=== PATIENT | male | born 1955 | race Caucasian/White ===

== ENCOUNTER → 2020-11-09 12:06 | Outpatient (CLI) | payer MEDICARE, BC, SELFPAY ==
--- NOTE | 2020-11-10 | DI.RAD_ITS ---
Exam(s) XR LUMBAR SPINE AP, LAT EXAM: XR LUMBAR SPINE AP, LAT CLINICAL HISTORY: CHRONIC MID BACK AND LOW BACK PAIN, ? SCOLIOSIS. TECHNIQUE: 2D digital imaging was performed. COMPARISON: No exams were available for comparison FINDINGS: There is a prominent dextroscoliosis centered at L1-2. There is asymmetric disc space narrowing on t he left side at L1-2 and L2-3 and asymmetric disc space narrowing on the right side at L3-4 through L 5-S1. And there are prominent endplate osteophytes. The vertebral bodies are not optimally profiled on the lateral view due to the scoliosis. Facet joint degenerative changes are noted greatest at L4 -5 and L5-S1. No gross compression fracture is seen. There are bilateral hip prostheses. There are [id number] degenerative changes of both SI joints. IMPRESSION: Severe degenerative disc changes and scoliosis. DATA REPOSITORY: RADIATION DOSE DELIVERED:
--- NOTE | 2020-11-10 | DI.RAD_ITS ---
Exam(s) XR THORACIC SPINE COMPLETE EXAM: XR THORACIC SPINE COMPLETE CLINICAL HISTORY: CHRONIC MID BACK AND LOW BACK PAIN, ? SCOLISOS. TECHNIQUE: 2D digital imaging was performed. COMPARISON: No exams were available for comparison FINDINGS: There is no evidence of compression fracture. There are mild degenerative disc changes with anterior osteophytes. There is a mild levoscoliosis in the lower thoracic region. Heart size is normal. Th e visualized portions of the lungs appear clear. IMPRESSION: Mild degenerative changes. Mild scoliosis. DATA REPOSITORY: RADIATION DOSE DELIVERED:
== END ==
PROVIDERS: Visit Provider Chiropractor Orthopedic
DX: M54.5 Low back pain (principal); M54.6 Pain in thoracic spine; M51.34 Other intervertebral disc degeneration, thoracic region; M51.37 Other intervertebral disc degeneration, lumbosacral region; M53.3 Sacrococcygeal disorders, not elsewhere classified; Z96.643 Presence of artificial hip joint, bilateral; M47.817 Spondylosis without myelopathy or radiculopathy, lumbosacral region
CPT/HCPCS: 72072; 72100

== ENCOUNTER 2021-12-23 15:55 | Outpatient (REF) | payer MEDICARE, BC, SELFPAY ==
[2021-12-25 10:25] LABS: COVID-19 RT-PCR UVMMC Result Positive (Negative)
== END 2021-12-23 15:56 | disposition home or self-care (01) ==
LOC: NCHCN 15:55
PROVIDERS: Visit Provider Nurse Practitioner Family
DX: U07.1 COVID-19 (principal)
CPT/HCPCS: U0003

== ENCOUNTER 2022-09-12 18:16 | Outpatient (REF) | payer SELFPAY ==
[2022-09-12 18:31] LABS: Absolute Basophil Count 0.04 10^3/uL (0.0-0.2); Absolute Eosinophil Count 0.29 10^3/uL (0.0-0.7); Absolute Lymphocyte Count 1.49 10^3/uL (1.2-3.4); Absolute Monocyte Count 0.51 10^3/uL (0.1-0.8); Absolute Neutrophil Count 2.45 10^3/uL (1.2-6.7); Basophils % 0.8; Eosinophils % 5.9; HCT 28.7 % (40.0-50.0); Lymphocytes % 30.5; MCH 30.1 pg (27.0-33.0); MCHC 31.4 % (32.0-36.0); MCV 96 fL (80-95); MPV 9.5 fL (8.0-11.0); Monocytes % 10.5; Neutrophils % 50.3; Platelet Count 259 10^3/uL (130-400); RBC 2.99 10^6/uL (4.36-5.78); RDW 17.6 % (11.8-14.1); RDW-SD 61.5 fL; WBC 4.88 10^3/uL (4.4-10.8)
[2022-09-12 18:48] LABS: ALT 49 U/L (16-63); AST 47 U/L (15-37); Albumin 2.4 g/dL (3.4-5.0); Alkaline Phosphatase 151 U/L (46-116); Anion Gap 7.7 mmol/L (3-11); BUN 16 mg/dL (7-18); Bilirubin, Total 0.3 mg/dL (0.2-1.0); CO2 25.3 mmol/L (21.0-32.0); CREATININE 0.9 mg/dL (0.70-1.30); Chloride 110 mmol/L (98-107); Estimated GFR 93.03 (mL/min/1.73m2); Glucose 99 mg/dL (74-106); Potassium 4.2 mmol/L (3.5-5.1); Sodium 143 mmol/L (136-145); Total Protein 5.8 g/dL (6.4-8.2)
== END 2022-09-12 18:17 | disposition home or self-care (01) ==
LOC: LBN 18:16
PROVIDERS: Visit Provider Nurse Practitioner Gerontology
DX: D50.0 Iron deficiency anemia secondary to blood loss (chronic) (principal); E83.51 Hypocalcemia; R68.89 Other general symptoms and signs
CPT/HCPCS: 80053; 85025

== ENCOUNTER 2022-10-03 20:46 | Outpatient (REF) | payer MEDICARE, BC, SELFPAY ==
[2022-10-03 19:42] LABS: Abs Immature Grans 0.02 10^3/uL (0.0-0.06); Absolute Basophil Count 0.08 10^3/uL (0.0-0.2); Absolute Eosinophil Count 0.31 10^3/uL (0.0-0.7); Absolute Lymphocyte Count 2.15 10^3/uL (1.2-3.4); Absolute Monocyte Count 0.49 10^3/uL (0.1-0.8); Absolute Neutrophil Count 2.98 10^3/uL (1.2-6.7); Basophils % 1.3; Eosinophils % 5.1; HCT 35.5 % (40.0-50.0); HGB 11.2 g/dL (13.5-17.5); Immature Grans % 0.3; Lymphocytes % 35.7; MCH 31.7 pg (27.0-33.0); MCHC 31.5 % (32.0-36.0); MCV 101 fL (80-95); MPV 10.1 fL (8.0-11.0); Monocytes % 8.1; Neutrophils % 49.5; Platelet Count 225 10^3/uL (130-400); RBC 3.53 10^6/uL (4.36-5.78); WBC 6.03 10^3/uL (4.4-10.8)
== END 2022-10-03 20:47 | disposition home or self-care (01) ==
LOC: LBN 20:46
PROVIDERS: Visit Provider Nurse Practitioner Gerontology
DX: S72.115D Nondisplaced fracture of greater trochanter of left femur, subsequent encounter for closed fracture with routine healing; Z96.643 Presence of artificial hip joint, bilateral; D50.8 Other iron deficiency anemias
CPT/HCPCS: 85025

== ENCOUNTER 2022-10-17 19:27 | Outpatient (REF) | payer SELFPAY ==
[2022-10-17 20:44] LABS: Abs Immature Grans 0.01 10^3/uL (0.0-0.06); Absolute Basophil Count 0.07 10^3/uL (0.0-0.2); Absolute Eosinophil Count 0.09 10^3/uL (0.0-0.7); Absolute Monocyte Count 0.56 10^3/uL (0.1-0.8); Absolute Neutrophil Count 4.01 10^3/uL (1.2-6.7); Eosinophils % 1.2; HCT 36.5 % (40.0-50.0); HGB 11.9 g/dL (13.5-17.5); Immature Grans % 0.1; Lymphocytes % 34.5; MCHC 32.6 % (32.0-36.0); MCV 98 fL (80-95); MPV 10.2 fL (8.0-11.0); Monocytes % 7.7; Neutrophils % 55.5; Platelet Count 229 10^3/uL (130-400); RBC 3.72 10^6/uL (4.36-5.78); RDW 15.4 % (11.8-14.1); RDW-SD 55.4 fL; WBC 7.24 10^3/uL (4.4-10.8)
[2022-10-17 21:50] LABS: ALT 18 U/L (16-63); AST 15 U/L (15-37); Albumin 3.6 g/dL (3.4-5.0); Alkaline Phosphatase 96 U/L (46-116); Anion Gap 14.6 mmol/L (3-11); BUN 23 mg/dL (7-18); Bilirubin, Total 0.2 mg/dL (0.2-1.0); CO2 20.4 mmol/L (21.0-32.0); CREATININE 1.1 mg/dL (0.70-1.30); Calcium 8.6 mg/dL (8.5-10.1); Chloride 109 mmol/L (98-107); Estimated GFR 72.67 (mL/min/1.73m2); Glucose 112 mg/dL (74-106); Magnesium 1.9 mg/dL (1.8-2.4); Potassium 3.5 mmol/L (3.5-5.1); Sodium 144 mmol/L (136-145); TSH (W/Ref FT4) 0.68 uIU/mL (0.36-3.74); Total Protein 6.7 g/dL (6.4-8.2)
[2022-10-17 21:54] LABS: Vitamin B12 > 2000 pg/mL (193-986)
[2022-10-17 22:23] LABS: Vitamin D 25 Total 30.8 ng/mL (30-100)
== END 2022-10-17 19:28 | disposition home or self-care (01) ==
LOC: LBN 19:27
PROVIDERS: Visit Provider Nurse Practitioner Gerontology
DX: I11.9 Hypertensive heart disease without heart failure (principal); E53.8 Deficiency of other specified B group vitamins; E55.9 Vitamin D deficiency, unspecified
CPT/HCPCS: 80053; 82306; 82607; 83735; 84443; 85025